=== PATIENT | female | born 1950 | race Caucasian/White ===

== ENCOUNTER 2024-09-22 06:31 | Day surgery (SDC) | payer OTHER, MEDICARE ==
[2024-09-21 08:59] VITALS: BMI 27.5
[2024-09-22] MEDS ORDERED: KETOROLAC TROMETHAMINE 0.5% EYE DROP 1 DROP DROPS ONE (06:49)
[2024-09-22] MEDS ORDERED: TROPICAMIDE 1% 3 ML EYE DROPS ONE (06:49)
[2024-09-22] MEDS ORDERED: PHENYLEPHRINE 2.5% OPTHALMIC DROP 2ML BOTTLE ONE (06:49)
[2024-09-22] MEDS ORDERED: OFLOXACIN 0.3% OPHTHALMIC SOLUTION 5 ML BOTTLE ONE (06:49)
[2024-09-22] MEDS ORDERED: CYCLOPENTOLATE HCL 1% OPHTH SOLN 2 ML BOTTLE ONE (06:49)
[2024-09-22] MEDS: PHENYLEPHRINE 2.5% OPHTH SOLN 15 ML BOTTLE OD SCH (07:05)
[2024-09-22] MEDS: KETOROLAC TROMETHAMINE 0.5% EYE DROP 1 DROP DROPS OD SCH (07:05)
[2024-09-22] MEDS: OFLOXACIN 0.3% OPHTHALMIC SOLUTION 5 ML BOTTLE OD SCH (07:05)
[2024-09-22] MEDS: CYCLOPENTOLATE HCL 1% OPHTH SOLN 2 ML BOTTLE OD SCH (07:05)
[2024-09-22] MEDS: TROPICAMIDE 1% OPHTH SOLN 15 ML BOTTLE OD SCH (07:05)
[2024-09-22 07:09] VITALS: RESP 16
[2024-09-22] MEDS ORDERED: BACITRACIN/POLYMYXIN OPH OINT 3.5 GM TUBE ONE (07:22)
[2024-09-22] MEDS ORDERED: BETAXOLOL HCL 0.25% OPHTHALMIC 10 ML DROPSBTL ONE (07:22)
[2024-09-22] MEDS ORDERED: POVIDONE-IODINE 5% OPHTHALMIC PREP 30 ML SOLUTION ONE (07:22)
[2024-09-22] MEDS ORDERED: TETRACAINE 0.5% OPHTH SOLN 2 ML BOTTLE ONE (07:22)
[2024-09-22] MEDS ORDERED: EPI-SHUGARCAINE (EPINEPHRINE 0.025% & LIDOCAINE-PF 0.75%) 4ML ONE (07:22)
[2024-09-22] MEDS ORDERED: ACETYLCHOLINE 1:100 INTRA-OCUL 20 MG/2 ML KIT ONE (07:23)
[2024-09-22] MEDS ORDERED: NEO/POLYMYX B SULF/DEXAMETH OPHTHALMIC 5ML BOTTLE ONE (07:23)
[2024-09-22] MEDS ORDERED: TRYPAN BLUE 0.5 ML DISP.SYRIN ONE (07:24)
[2024-09-22] MEDS ORDERED: PHENYLEPHRINE/KETOROLAC 4 ML VIAL IO ONE (07:24)
[2024-09-22] MEDS ORDERED: EPINEPHrine 1:1000 P/F - 1 MG/ML AMP ONE (07:24)
[2024-09-22] MEDS ORDERED: MIDAZOLAM HCL 2 MG/2 ML SINGLE DOSE VIAL ONE (08:13)
[2024-09-22] MEDS ORDERED: ACETAMINOPHEN 325 MG TABLET (FP) PO PRN (09:10)
[2024-09-22 09:24] VITALS: TEMP 96
[2024-09-22 09:45] VITALS: BP 137/56; PULSE 64
== END 2024-09-22 09:55 | disposition home or self-care (01) ==
LOC: FASU 06:31
PROVIDERS: ATTEND Ophthalmology
PROC: 08RK3JZ Replacement of Left Lens with Synthetic Substitute, Percutaneous Approach (ICD-10-PCS; principal; 2024-09-22 08:37)
DX: H25.89 Other age-related cataract (principal)
CPT/HCPCS: 66984; V2632; J1097

== ENCOUNTER 2024-10-06 07:26 | Day surgery (SDC) | payer OTHER, MEDICARE ==
[2024-09-04 14:49] VITALS: BMI 27.5
[~2024-10-06 07:26] MED LIST: CYCLOPENTOLATE HCL 1% OPHTH SOLN 2 ML BOTTLE OS SCH; KETOROLAC TROMETHAMINE 0.5% EYE DROP 1 DROP DROPS OS SCH; OFLOXACIN 0.3% OPHTHALMIC SOLUTION 5 ML BOTTLE OS SCH; PHENYLEPHRINE 2.5% OPHTH SOLN 15 ML BOTTLE OS SCH; TROPICAMIDE 1% OPHTH SOLN 15 ML BOTTLE OS SCH
[2024-10-06] MEDS ORDERED: OFLOXACIN 0.3% OPHTHALMIC SOLUTION 5 ML BOTTLE ONE (07:50)
[2024-10-06] MEDS ORDERED: KETOROLAC TROMETHAMINE 0.5% EYE DROP 1 DROP DROPS ONE (07:50)
[2024-10-06] MEDS ORDERED: TROPICAMIDE 1% 3 ML EYE DROPS ONE (07:50)
[2024-10-06] MEDS ORDERED: PHENYLEPHRINE 2.5% OPTHALMIC DROP 2ML BOTTLE ONE (07:50)
[2024-10-06] MEDS ORDERED: CYCLOPENTOLATE HCL 1% OPHTH SOLN 2 ML BOTTLE ONE (07:51)
[2024-10-06] MEDS: TROPICAMIDE 1% OPHTH SOLN 15 ML BOTTLE OD SCH (08:00)
[2024-10-06] MEDS: CYCLOPENTOLATE HCL 1% OPHTH SOLN 2 ML BOTTLE OD SCH (08:00)
[2024-10-06] MEDS: KETOROLAC TROMETHAMINE 0.5% EYE DROP 1 DROP DROPS OD SCH (08:00)
[2024-10-06] MEDS: PHENYLEPHRINE 2.5% OPHTH SOLN 15 ML BOTTLE OD SCH (08:00)
[2024-10-06] MEDS: OFLOXACIN 0.3% OPHTHALMIC SOLUTION 5 ML BOTTLE OD SCH (08:00)
[2024-10-06] MEDS ORDERED: EPINEPHrine 1:1000 P/F - 1 MG/ML AMP ONE (08:42)
[2024-10-06] MEDS ORDERED: BACITRACIN/POLYMYXIN OPH OINT 3.5 GM TUBE ONE (08:42)
[2024-10-06] MEDS ORDERED: POVIDONE-IODINE 5% OPHTHALMIC PREP 30 ML SOLUTION ONE (08:43)
[2024-10-06] MEDS ORDERED: NEO/POLYMYX B SULF/DEXAMETH OPHTHALMIC 5ML BOTTLE ONE (08:43)
[2024-10-06] MEDS ORDERED: EPI-SHUGARCAINE (EPINEPHRINE 0.025% & LIDOCAINE-PF 0.75%) 4ML ONE (08:43)
[2024-10-06] MEDS ORDERED: BETAXOLOL HCL 0.25% OPHTHALMIC 10 ML DROPSBTL ONE (08:43)
[2024-10-06] MEDS ORDERED: ACETAMINOPHEN 325 MG TABLET (FP) PO PRN (08:45)
[2024-10-06] MEDS ORDERED: MIDAZOLAM HCL 2 MG/2 ML SINGLE DOSE VIAL ONE (09:14)
[2024-10-06 10:12] VITALS: RESP 18; TEMP 97.4
[2024-10-06 10:52] VITALS: BP 120/68; PULSE 56
== END 2024-10-06 10:52 | disposition home or self-care (01) ==
LOC: FASU 07:26
PROVIDERS: ATTEND Ophthalmology
PROC: 08RJ3JZ Replacement of Right Lens with Synthetic Substitute, Percutaneous Approach (ICD-10-PCS; principal; 2024-10-06 09:43)
DX: H25.89 Other age-related cataract (principal)
CPT/HCPCS: 66984; V2632